=== PATIENT | female | born 1940 | race Hispanic/Latino ===

== ENCOUNTER 2022-01-21 12:29 | Inpatient (IN) | payer MEDICARE ==
[~2022-01-21] VITALS: Ht 162.6 cm; Wt 74.1 kg
[2022-01-21] MEDS ORDERED: ALBUTEROL/IPRATROPIUM 3 ML NEB NEB ONE (12:45)
[2022-01-21] MEDS ORDERED: SODIUM CHLORIDE 0.9% 1000ML 1,000 ML IV ONE (12:45)
[2022-01-21] MEDS ORDERED: METHYLPREDNISOLONE SOD SUCC 125 MG/2ML VIAL IV ONE (12:45)
[2022-01-21 13:33] LABS: BASOPHILS # (AUTO) 0.1 (0.0-0.1); BASOPHILS % 0.5 % (0.0-1.0); EOSINOPHILS # (AUTO) 0.1 (0.0-0.4); EOSINOPHILS % 0.4 % (0.0-6.0); HEMATOCRIT 41.1 % (34.2-44.1); HEMOGLOBIN 13.5 g/dL (12.0-16.0); LYMPHOCYTES # (AUTO) 1.6 (1.0-3.2); LYMPHOCYTES % 12.3 % (18.0-39.1); MEAN CORPUSCULAR HEMOGLOBIN 30.7 pg (28-32); MEAN CORPUSCULAR HGB CONC 32.8 g/dL (31-35); MEAN CORPUSCULAR VOLUME 93.4 fL (81-99); MONOCYTES # (AUTO) 0.7 (0.2-0.8); MONOCYTES % 5.2 % (4.4-11.3); NEUTROPHILS # (AUTO) 10.8 (2.1-6.9); NEUTROPHILS % 81.2 % (38.7-80.0); PLATELET COUNT 171 x10e3/uL (140-360); RED CELL DISTRIBUTION WIDTH 13.2 % (11.7-14.4)
[2022-01-21 14:06] LABS: ALBUMIN 3.9 g/dL (3.5-5.0); ALBUMIN/GLOBULIN RATIO 1.3 (0.8-2.0); ANION GAP 16.8 mmol/L (8-16); CALCIUM 9.8 mg/dL (8.4-10.2); CREATININE, SERUM 0.75 mg/dL (0.57-1.11)
[2022-01-21 14:07] LABS: POTASSIUM 2.8 mmol/L (3.5-5.1)
[2022-01-21] MEDS ORDERED: POTASSIUM CHLORIDE 20 MEQ TAB CR PO STA (14:38)
[2022-01-21] MEDS ORDERED: SODIUM CHLORIDE FLUSH 10 ML SYR INJ PRN (15:00)
[2022-01-21] MEDS: ALBUTEROL/IPRATROPIUM 3 ML NEB NEB SCH ×2 (15:20→22:45)
[2022-01-21] MEDS: ONDANSETRON HCL INJ 2MG/ML 2ML 2 MG/ML VIAL IV PRN (16:29)
[2022-01-21] MEDS ORDERED: ONDANSETRON HCL INJ 2MG/ML 2ML 2 MG/ML VIAL ONE (16:33)
[2022-01-21] MEDS ORDERED: ACETAMINOPHEN 325 MG TAB PO ONE (16:45)
[2022-01-21 18:45] VITALS: BP 136/52
[2022-01-21 19:32] LABS: INR 0.94; PROTHROMBIN TIME 13.4 seconds (11.9-14.5)
[2022-01-21 19:33] LABS: PARTIAL THROMBOPLASTIN TIME 27.1 seconds (23.8-35.5)
[2022-01-21] MEDS ORDERED: IOPAMIDOL 370 MG/ML 100 ML INFUS..BTL INJ ONE (19:43)
[2022-01-21 20:00] VITALS: BP 136/52
[2022-01-21] MEDS ORDERED: FUROSEMIDE INJ 10 MG/ML 4 ML VIAL IV ONE (20:00)
[2022-01-21] MEDS ORDERED: POTASSIUM CHLORIDE 10MEQ EA PO ONE (20:00)
[2022-01-21] MEDS: METHYLPREDNISOLONE SOD SUCC 125 MG/2ML VIAL IV SCH (20:21)
[2022-01-21] MEDS: ACETAMINOPHEN 325 MG TAB PO PRN (20:21)
[2022-01-21 21:00] VITALS: BP 136/52
[2022-01-22] VITALS (8 sets, daily range): BP systolic 107–141; BP diastolic 47–51
[2022-01-22] MEDS ORDERED: FUROSEMIDE40 MG PO (01:58)
[2022-01-22] MEDS ORDERED: ASPIRIN81 MG PO (01:58)
[2022-01-22] MEDS ORDERED: CEPHALEXIN500 MG PO (01:58)
[2022-01-22] MEDS ORDERED: ATORVASTATIN CA20 MG PO (01:58)
[2022-01-22] MEDS ORDERED: FAMOTIDINE20 MG PO (01:58)
[2022-01-22] MEDS ORDERED: HYDROCHLOROTHIA25 MG PO (01:58)
[2022-01-22] MEDS ORDERED: NEURONTIN400 MG PO (01:58)
[2022-01-22] MEDS ORDERED: LEVOTHYROXINE75 MCG PO (01:58)
[2022-01-22] MEDS ORDERED: OMEPRAZOLE40 MG PO (01:58)
[2022-01-22] MEDS: ALBUTEROL/IPRATROPIUM 3 ML NEB NEB SCH ×6 (03:15→23:45)
[2022-01-22 04:57] LABS: BASOPHILS % 0.2 % (0.0-1.0); HEMATOCRIT 39.2 % (34.2-44.1); LYMPHOCYTES # (AUTO) 0.8 (1.0-3.2); LYMPHOCYTES % 4.3 % (18.0-39.1); MEAN CORPUSCULAR HEMOGLOBIN 31.1 pg (28-32); MEAN CORPUSCULAR HGB CONC 33.2 g/dL (31-35); MEAN CORPUSCULAR VOLUME 93.8 fL (81-99); MONOCYTES # (AUTO) 0.4 (0.2-0.8); MONOCYTES % 1.9 % (4.4-11.3); NEUTROPHILS # (AUTO) 17.4 (2.1-6.9); NEUTROPHILS % 92.8 % (38.7-80.0); PLATELET COUNT 174 x10e3/uL (140-360); RED BLOOD COUNT 4.18 x10e6/uL (3.6-5.1); RED CELL DISTRIBUTION WIDTH 13.2 % (11.7-14.4)
[2022-01-22 05:15] LABS: ANION GAP 17.2 mmol/L (8-16); CALCIUM 9.9 mg/dL (8.4-10.2); CREATININE, SERUM 0.82 mg/dL (0.57-1.11); POTASSIUM 3.2 mmol/L (3.5-5.1)
[2022-01-22] MEDS: ACETAMINOPHEN 325 MG TAB PO PRN ×2 (06:15→18:59)
[2022-01-22] MEDS ORDERED: FUROSEMIDE INJ 10 MG/ML 4 ML VIAL IV SCH (09:00)
[2022-01-22] MEDS ORDERED: POTASSIUM CHLORIDE 10MEQ EA PO ONE (09:45)
[2022-01-22] MEDS ORDERED: VENTOLIN HFA18 GM INH (10:32)
[2022-01-22] MEDS: METHYLPREDNISOLONE SOD SUCC 125 MG/2ML VIAL IV SCH ×2 (10:33→21:35)
[2022-01-22] MEDS: POTASSIUM CHLORIDE 10MEQ EA PO SCH (10:34)
[2022-01-22] MEDS ORDERED: SODIUM CHLORIDE 0.9% 250ML 250 ML ONE (17:23)
[2022-01-22] MEDS: BUDESONIDE 0.5MG/2 ML NEB INH SCH (23:45)
[2022-01-23] VITALS (8 sets, daily range): BP systolic 109–148; BP diastolic 41–76
[2022-01-23] MEDS: ONDANSETRON HCL INJ 2MG/ML 2ML 2 MG/ML VIAL IV PRN (01:30)
[2022-01-23] MEDS: ALBUTEROL/IPRATROPIUM 3 ML NEB NEB SCH ×6 (03:50→23:05)
[2022-01-23 04:55] LABS: BASOPHILS % 0.1 % (0.0-1.0); HEMATOCRIT 36.7 % (34.2-44.1); LYMPHOCYTES # (AUTO) 0.8 (1.0-3.2); LYMPHOCYTES % 4.8 % (18.0-39.1); MEAN CORPUSCULAR HEMOGLOBIN 31.1 pg (28-32); MEAN CORPUSCULAR HGB CONC 32.7 g/dL (31-35); MEAN CORPUSCULAR VOLUME 95.1 fL (81-99); MONOCYTES # (AUTO) 0.4 (0.2-0.8); MONOCYTES % 2.2 % (4.4-11.3); NEUTROPHILS # (AUTO) 15.1 (2.1-6.9); PLATELET COUNT 169 x10e3/uL (140-360); RED BLOOD COUNT 3.86 x10e6/uL (3.6-5.1); RED CELL DISTRIBUTION WIDTH 13.3 % (11.7-14.4)
[2022-01-23 05:16] LABS: ANION GAP 15.3 mmol/L (8-16); CALCIUM 9.7 mg/dL (8.4-10.2); CREATININE, SERUM 0.7 mg/dL (0.57-1.11); POTASSIUM 3.3 mmol/L (3.5-5.1)
[2022-01-23] MEDS: BUDESONIDE 0.5MG/2 ML NEB INH SCH ×2 (06:10→18:45)
[2022-01-23] MEDS ORDERED: METHYLPREDNISOLONE SOD SUCC 40 MG/ML VIAL 1ML IV SCH (09:00)
[2022-01-23] MEDS ORDERED: POTASSIUM CHLORIDE 10MEQ EA PO ONE (09:15)
[2022-01-23] MEDS: FUROSEMIDE 40 MG TAB PO SCH (10:05)
[2022-01-23] MEDS: POTASSIUM CHLORIDE 10MEQ EA PO SCH (10:08)
[2022-01-23] MEDS ORDERED: HYDROCODONE/APAP 5MG-325MG TAB PO ONE (15:15)
[2022-01-23] MEDS: ACETAMINOPHEN 325 MG TAB PO PRN (20:47)
[2022-01-24] VITALS: BP 124/55
[2022-01-24] MEDS: ALBUTEROL/IPRATROPIUM 3 ML NEB NEB SCH ×2 (02:30→07:20)
[2022-01-24 04:00] VITALS: BP 130/65
[2022-01-24] MEDS: BUDESONIDE 0.5MG/2 ML NEB INH SCH (07:20)
[2022-01-24 08:20] VITALS: BP 136/63
[2022-01-24] MEDS ORDERED: PREDNISONE 20 MG TAB PO SCH (09:00)
[2022-01-24] MEDS: FUROSEMIDE 40 MG TAB PO SCH (09:05)
[2022-01-24] MEDS: POTASSIUM CHLORIDE 10MEQ EA PO SCH (09:05)
[2022-01-24] MEDS ORDERED: POTASSIUM CHLORIDE 10MEQ EA PO NR (09:30)
== END 2022-01-24 11:07 | disposition home or self-care (01) | DRG 291 ==
LOC: ER 12:32 → ERHOLD 14:47 → MED/SURG 18:36
PROVIDERS: ADMIT Internal Medicine; ATTEND Internal Medicine
DX: I11.0 Hypertensive heart disease with heart failure (principal); I50.33 Acute on chronic diastolic (congestive) heart failure; J18.9 Pneumonia, unspecified organism; J44.0 Chronic obstructive pulmonary disease with (acute) lower respiratory infection; J44.1 Chronic obstructive pulmonary disease with (acute) exacerbation; E87.6 Hypokalemia; R09.02 Hypoxemia; Z20.822 Contact with and (suspected) exposure to COVID-19; E66.9 Obesity, unspecified; Z68.28 Body mass index [BMI] 28.0-28.9, adult; Z79.01 Long term (current) use of anticoagulants; Z95.2 Presence of prosthetic heart valve; E78.5 Hyperlipidemia, unspecified; J45.909 Unspecified asthma, uncomplicated; K21.9 Gastro-esophageal reflux disease without esophagitis; Z87.891 Personal history of nicotine dependence
CPT/HCPCS: 36415; 71045; 71260; 80048; 80053; 83605; 83880; 84484; 85025; 85379; 85610; 85730; 87040; 93005; 93306; 94640; 94799; 99284; J0456; J0696; J1940; J2405; J2930; J7030; J7050; J7512; Q9967

== ENCOUNTER 2022-03-13 16:58 | Emergency (ER) | payer MEDICARE ==
[~2022-03-13] VITALS: Ht 162.6 cm; Wt 79.4 kg
[~2022-03-13 16:58] MED LIST: ASPIRIN81 MG PO; ATORVASTATIN CA20 MG PO; CEPHALEXIN500 MG PO; FAMOTIDINE20 MG PO; FUROSEMIDE40 MG PO; HYDROCHLOROTHIA25 MG PO; LEVOTHYROXINE75 MCG PO; NEURONTIN400 MG PO; OMEPRAZOLE40 MG PO; VENTOLIN HFA18 GM INH
[2022-03-13] MEDS ORDERED: ASPIRIN 325 MG TAB PO ONE (17:30)
[2022-03-13] MEDS ORDERED: SODIUM CHLORIDE 0.9% 1000ML 1,000 ML IV ONE (17:45)
[2022-03-13] MEDS ORDERED: ONDANSETRON HCL INJ 2MG/ML 2ML 2 MG/ML VIAL IV PRN (17:45)
[2022-03-13] MEDS ORDERED: ACETAMINOPHEN 325 MG TAB PO ONE (17:45)
[2022-03-13 17:48] LABS: BASOPHILS # (AUTO) 0.1 (0.0-0.1); BASOPHILS % 0.8 % (0.0-1.0); EOSINOPHILS % 0.3 % (0.0-6.0); HEMOGLOBIN 15.5 g/dL (12.0-16.0); LYMPHOCYTES # (AUTO) 1.5 (1.0-3.2); LYMPHOCYTES % 20.7 % (18.0-39.1); MEAN CORPUSCULAR VOLUME 91.1 fL (81-99); MONOCYTES # (AUTO) 0.7 (0.2-0.8); MONOCYTES % 9.4 % (4.4-11.3); NEUTROPHILS % 68.3 % (38.7-80.0); PLATELET COUNT 230 x10e3/uL (140-360); RED BLOOD COUNT 5.16 x10e6/uL (3.6-5.1); RED CELL DISTRIBUTION WIDTH 13.3 % (11.7-14.4)
[2022-03-13 18:08] LABS: ALBUMIN 4.2 g/dL (3.5-5.0); ALBUMIN/GLOBULIN RATIO 1.2 (0.8-2.0); CALCIUM 10.3 mg/dL (8.4-10.2); CREATININE, SERUM 0.85 mg/dL (0.57-1.11)
[2022-03-13 19:22] LABS: CLARITY,URINE SL CLOUDY (CLEAR); COLOR,URINE AMBER (YELLOW)
[2022-03-13 19:23] LABS: KETONES,URINE NEGATIVE (NEGATIVE); LEUKOCYTE ESTERASE ,URINE NEGATIVE (NEGATIVE); NITRITE,URINE NEGATIVE (NEGATIVE); PROTEIN,URINE DIPSTICK NEGATIVE (NEGATIVE); URINE UROBILINOGEN 0.2 mg/dL (0.2 - 1)
[2022-03-13 19:31] LABS: BACTERIA,URINE FEW /HPF; EPITHELIAL CELLS,URINE FEW /LPF; WBC,URINE (MAN) 0-5 /HPF (0-5)
[2022-03-13] MEDS ORDERED: PAXLOVID 300-11 EACH PO (19:59)
== END 2022-03-13 20:15 | disposition home or self-care (01) ==
LOC: ER 17:26
DX: R53.81 Other malaise (principal); U07.1 COVID-19; I10 Essential (primary) hypertension; E11.65 Type 2 diabetes mellitus with hyperglycemia; E78.5 Hyperlipidemia, unspecified; J44.9 Chronic obstructive pulmonary disease, unspecified; E03.9 Hypothyroidism, unspecified
CPT/HCPCS: 36415; 71045; 80053; 81001; 84484; 85025; 87086; 93005; 99284; J2405; J7030; U0002

== ENCOUNTER 2022-04-29 12:22 | Emergency (ER) | payer MEDICARE ==
[~2022-04-29] VITALS: Ht 162.6 cm; Wt 79.4 kg
[~2022-04-29 12:22] MED LIST changes: +PAXLOVID 300-11 EACH PO
[2022-04-29] MEDS ORDERED: SODIUM CHLORIDE 0.9% 1000ML 500 ML IV STA (13:03)
[2022-04-29 13:23] LABS: BASOPHILS # (AUTO) 0.1 (0.0-0.1); BASOPHILS % 1.1 % (0.0-1.0); EOSINOPHILS # (AUTO) 0.1 (0.0-0.4); EOSINOPHILS % 1.9 % (0.0-6.0); HEMATOCRIT 40.1 % (34.2-44.1); HEMOGLOBIN 12.8 g/dL (12.0-16.0); LYMPHOCYTES # (AUTO) 1.8 (1.0-3.2); LYMPHOCYTES % 26.1 % (18.0-39.1); MEAN CORPUSCULAR HEMOGLOBIN 29.8 pg (28-32); MEAN CORPUSCULAR HGB CONC 31.9 g/dL (31-35); MEAN CORPUSCULAR VOLUME 93.5 fL (81-99); MONOCYTES # (AUTO) 0.7 (0.2-0.8); MONOCYTES % 10.5 % (4.4-11.3); NEUTROPHILS # (AUTO) 4.2 (2.1-6.9); NEUTROPHILS % 60.1 % (38.7-80.0); PLATELET COUNT 198 x10e3/uL (140-360); RED BLOOD COUNT 4.29 x10e6/uL (3.6-5.1); RED CELL DISTRIBUTION WIDTH 14.2 % (11.7-14.4)
[2022-04-29 13:42] LABS: ALBUMIN 3.8 g/dL (3.5-5.0); ALBUMIN/GLOBULIN RATIO 1.4 (0.8-2.0); ANION GAP 15.6 mmol/L (8-16); CALCIUM 9.6 mg/dL (8.4-10.2); CREATININE, SERUM 0.77 mg/dL (0.57-1.11)
[2022-04-29 13:48] LABS: POTASSIUM 2.6 mmol/L (3.5-5.1)
[2022-04-29 13:49] LABS: CREATINE KINASE MB 1.8 ng/mL (0-5.0)
[2022-04-29] MEDS ORDERED: POTASSIUM CHLORIDE 20MEQ/100ML 100 ML IV ONE (14:00)
[2022-04-29 14:23] LABS: CLARITY,URINE CLEAR (CLEAR); COLOR,URINE YELLOW (YELLOW); KETONES,URINE TRACE (NEGATIVE); LEUKOCYTE ESTERASE ,URINE NEGATIVE (NEGATIVE); NITRITE,URINE NEGATIVE (NEGATIVE); PROTEIN,URINE DIPSTICK NEGATIVE (NEGATIVE); URINE UROBILINOGEN 1 mg/dL (0.2 - 1)
[2022-04-29 14:28] LABS: BACTERIA,URINE FEW /HPF; EPITHELIAL CELLS,URINE FEW /LPF; TRANSITIONAL EPI CELLS,URINE FEW
[2022-04-29 14:29] LABS: HYALINE CASTS 0-1 (0-1); MUCUS,URINE MODERATE (RARE)
[2022-04-29] MEDS ORDERED: POTASSIUM CHLORIDE 20 MEQ TAB CR PO ONE (14:30)
[2022-04-29] MEDS ORDERED: KETOROLAC TROMETHAMINE 30 MG/ML VIAL IV STA (15:39)
[2022-04-29] MEDS ORDERED: KETOROLAC TROMETHAMINE 30 MG/ML VIAL ONE (15:52)
== END 2022-04-29 18:08 | disposition home or self-care (01) ==
LOC: ER 12:30
DX: E87.6 Hypokalemia (principal); R94.31 Abnormal electrocardiogram [ECG] [EKG]
CPT/HCPCS: 36415; 71045; 80053; 81001; 82550; 82553; 83880; 84484; 85025; 93005; 99284; J1885; J3480; J7030

== ENCOUNTER 2022-05-02 12:46 | Emergency (ER) | payer MEDICARE ==
[~2022-05-02] VITALS: Ht 162.6 cm; Wt 79.4 kg
[2022-05-02 13:21] LABS: BASOPHILS # (AUTO) 0.1 (0.0-0.1); EOSINOPHILS # (AUTO) 0.2 (0.0-0.4); EOSINOPHILS % 2.4 % (0.0-6.0); HEMATOCRIT 42.9 % (34.2-44.1); HEMOGLOBIN 13.6 g/dL (12.0-16.0); LYMPHOCYTES # (AUTO) 1.8 (1.0-3.2); LYMPHOCYTES % 23.6 % (18.0-39.1); MEAN CORPUSCULAR HEMOGLOBIN 30.4 pg (28-32); MEAN CORPUSCULAR HGB CONC 31.7 g/dL (31-35); MEAN CORPUSCULAR VOLUME 95.8 fL (81-99); MONOCYTES # (AUTO) 0.6 (0.2-0.8); MONOCYTES % 8.2 % (4.4-11.3); NEUTROPHILS % 64.5 % (38.7-80.0); PLATELET COUNT 153 x10e3/uL (140-360); RED BLOOD COUNT 4.48 x10e6/uL (3.6-5.1); RED CELL DISTRIBUTION WIDTH 14.4 % (11.7-14.4)
[2022-05-02 13:41] LABS: ALBUMIN/GLOBULIN RATIO 1.2 (0.8-2.0); ANION GAP 17.4 mmol/L (8-16); CALCIUM 9.9 mg/dL (8.4-10.2); CREATININE, SERUM 0.74 mg/dL (0.57-1.11); POTASSIUM 3.4 mmol/L (3.5-5.1)
[2022-05-02] MEDS ORDERED: CYCLOBENZAPRINE HCL 10 MG TAB PO ONE (14:30)
[2022-05-02] MEDS ORDERED: SODIUM CHLORIDE 0.9% 1000ML 1,000 ML IV ONE (16:15)
[2022-05-02] MEDS ORDERED: DIPHENHYDRAMINE HCL INJ 50 MG/ML VIAL IV PRN (16:15)
[2022-05-02] MEDS ORDERED: ACETAMINOPHEN 325 MG TAB PO ONE (16:15)
[2022-05-02] MEDS ORDERED: METOCLOPRAMIDE HCL 10 MG/2ML VIAL IV ONE (16:30)
[2022-05-02] MEDS ORDERED: KETOROLAC TROMETHAMINE 30 MG/ML VIAL IV ONE (16:30)
[2022-05-02] MEDS ORDERED: METOCLOPRAMIDE HCL 10 MG TAB PO ONE (17:00)
[2022-05-02] MEDS ORDERED: IBUPROFEN 600 MG TAB PO NR (17:00)
[2022-05-02] MEDS ORDERED: DIPHENHYDRAMINE HCL INJ 50 MG/ML VIAL IV ONE (17:00)
[2022-05-02] MEDS ORDERED: DIPHENHYDRAMINE HCL 25 MG CAP PO ONE (17:15)
[2022-05-02] MEDS ORDERED: CYCLOBENZAPRINE10 MG PO (17:42)
[2022-05-02 17:58] VITALS: BP 144/59
== END 2022-05-02 17:56 | disposition home or self-care (01) ==
LOC: ER 12:59
DX: R51.9 Headache, unspecified (principal); M62.838 Other muscle spasm; I10 Essential (primary) hypertension; E11.65 Type 2 diabetes mellitus with hyperglycemia; E78.5 Hyperlipidemia, unspecified; K21.9 Gastro-esophageal reflux disease without esophagitis; I25.10 Atherosclerotic heart disease of native coronary artery without angina pectoris; J44.9 Chronic obstructive pulmonary disease, unspecified; R94.31 Abnormal electrocardiogram [ECG] [EKG]
CPT/HCPCS: 36415; 70450; 80053; 82948; 85025; 93005; 99284; J1200; J1885; J2765; J7030; J8597